=== PATIENT | male | born 1985 | race Caucasian/White ===

== ENCOUNTER 2018-05-06 21:24 | Emergency (ER) | payer SELFPAY ==
--- NOTE | 2018-05-06 21:43 | EDM.PDOC ---
ED HPI GENERAL MEDICAL PROBLEM - General Chief Complaint: General Time Seen by Provider: 05/06/18 21:37 Source of Information: Reports: Patient History Limitations: Reports: No Limitations - History of Present Illness INITIAL COMMENTS - FREE TEXT/NARRATIVE: HISTORY AND PHYSICAL: History of present illness: Patient is a 32-year-old male who presents to the emergency room today with complaints of body aches, headache and chills. He said yesterday he had gotten into a hot tub which appeared "simon in color" and is concerned he has legionnaires disease. He states that he has done research on the Internet and is concerned that he may be developing this illness. He says he has had a subjective fever and chills at home, although not recorded. The girlfriend who was also in the hot tub is feeling well and has no current complaints. Denies any nausea, vomiting, diarrhea, rashes, abdominal pain, chest pain or shortness of breath. Review of systems: As per history of present illness and below otherwise all systems reviewed and negative. Past medical history: As per history of present illness and as reviewed below otherwise noncontributory. Surgical history: As per history of present illness and as reviewed below otherwise noncontributory. Social history: No reported history of drug or alcohol abuse. Family history: As per history of present illness and as reviewed below otherwise noncontributory. Physical exam: General: Well-developed and well-nourished 32-year-old male. Alert and oriented. Nontoxic appearing and in no acute distress. HEENT: Atraumatic, normocephalic, pupils equal and reactive bilaterally, negative for conjunctival pallor or scleral icterus, mucous membranes moist, throat clear, neck supple, nontender, trachea midline. No drooling or trismus noted. No meningeal signs Lungs: Clear to auscultation, breath sounds equal bilaterally, chest nontender. Heart: S1S2, regular rate and rhythm without overt murmur Abdomen: Soft, nondistended, nontender. Negative for masses or hepatosplenomegaly. Negative for costovertebral tenderness. Pelvis: Stable nontender. Genitourinary: Deferred. Rectal: Deferred. Skin: Intact, warm, dry. No lesions or rashes noted. Extremities: Atraumatic, negative for cords or calf pain. Neurovascular unremarkable. Neuro: Awake, alert, oriented. Cranial nerves II through XII unremarkable. Cerebellum unremarkable. Motor and sensory unremarkable throughout. Exam nonfocal. Notes: During my physical assessment and evaluation of this patient I did have to ask him to get off of his cell phone so I could complete my evaluation. Patient is requesting a prescription for 2 week course of doxycycline. I did inform the patient that I was unable to write a prescription based on his online research of his illness. He refuses to do any routine lab work at this time. He is requesting to sign out prior to receiving further care. States "my dad is a doctor, I'll just have him get me this prescription". I Encouraged him to follow -up with his primary caregiver or return to the emergency room if his symptoms persist or worsen. He voices understanding Diagnostics: [employer]: Declines Impression: Encounter for medical screening Eloped Plan: Eloped Definitive disposition and diagnosis as appropriate pending reevaluation and review of above. Duration: Day(s): ED ROS GENERAL - Review of Systems Review Of Systems: ROS reveals no pertinent complaints other than HPI. ED EXAM, GENERAL - Physical Exam Exam: See Below (See dictation) Departure - Departure Time of Disposition: 21:42 Disposition: Eloped 07 Clinical Impression: Encounter for medical screening examination - Discharge Information
== END 2018-05-06 21:40 | disposition left against medical advice (07) ==
LOC: MW.ED 21:24
DX: Z13.9 Encounter for screening, unspecified (principal)
CPT/HCPCS: 99282

== ENCOUNTER 2020-07-22 10:21 | Emergency (ER) | payer OTHER ==
[2020-07-22] MEDS ORDERED: Tetracaine HCl/PF 0.5% 4 ML Bottle EYEBOTH ONE (10:24)
--- NOTE | 2020-07-22 10:43 | EDM.PDOC ---
ED HPI GENERAL MEDICAL PROBLEM - General Chief Complaint: Eye Problems Stated Complaint: IRRITATION IN EYE Time Seen by Provider: 07/22/20 10:23 Source of Information: Reports: Patient History Limitations: Reports: No Limitations - History of Present Illness INITIAL COMMENTS - FREE TEXT/NARRATIVE: HISTORY AND PHYSICAL: History of present illness: Patient is a 35-year-old male who presents to the emergency room with complaints of right eye irritation that started yesterday. He states he thought maybe some dust had gotten in his eye and has since tried to irrigate and use multiple [id number] eyedrops without any relief. He does not wear any contact lenses. He denies any visual change but states he can feel something causing irritation when he blinks. Patient denies any fever, chills, headache, change in vision, syncope or near syncope. Denies any chest pain, back pain, shortness of breath or cough. Denies any GI or symptoms. Tdap is UTD. Review of systems: As per history of present illness and below otherwise all systems reviewed and negative. Past medical history: As per history of present illness and as reviewed below otherwise noncontributory. Surgical history: As per history of present illness and as reviewed below otherwise noncontributory. Social history: See social history for further information Family history: As per history of present illness and as reviewed below otherwise noncontributory. Physical exam: General: Well developed and well nourished. Alert and orientated x 3. Nontoxic in appearance and in no acute distress. Vital signs are stable and have been reviewed by me. Nursing notes were reviewed. HEENT: Atraumatic, normocephalic, pupils equal and reactive bilaterally, negative for conjunctival pallor or scleral icterus, scleral injection of right eye, no intraocular pain with movement, mucous membranes moist, TMs normal bilaterally, throat clear, neck supple, nontender, trachea midline. No drooling or trismus noted. No meningeal signs. No hot potato voice noted. Lungs: Clear to auscultation, breath sounds equal bilaterally, chest nontender. Normal work of breathing, no accessory muscles used. Heart: S1S2, regular rate and rhythm without overt murmur Skin: Intact, warm, dry. No lesions or rashes noted. Hematologic: No petechiae or purpra. Mucosa appropriate color and normal nail bed color and refill. Extremities: Atraumatic, moves all extremities per self without difficulty or deficits, negative for cords or calf pain. Neurovascular unremarkable. Neuro: Awake, alert, oriented. Cranial nerves II through XII unremarkable. Cerebellum unremarkable. Motor and sensory unremarkable throughout. Exam nonfocal. Psychiatric: Mood and affect are appropriate. Normal thought process. Answering questions appropriately. Notes: Fluorescein eye exam shows no corneal abrasion. When using a Q-tip to wipe under the upper lid, small foreign body was gently wiped away. Patient states he immediately felt better. The same was done for the lower lid, no foreign body removed. Eye was irrigated and reassessed. Visual acuity is noted. The patient is stable for discharge, counseling was provided and we discussed in great detail signs and symptoms that would prompt them to return to the Emergency Department. Medication, follow up and supportive care measures were reviewed and discussed. Voices understanding and is agreeable to plan of care. Denies any further questions or concerns at this time. Diagnostics: [employer]: Tetracaine, Gentamycin Prescription: None Impression: Right eye FB Plan: 1. Today your exam showed a small FB in the upper lid causing irritation. 2. Please use the eye drop 1 to 2 drops 3 times daily over the next 5 to 7 days. 3. We encourage you to follow up with the supply chain coordinator in the next few days for re-evaluation and further care/management. If your symptoms should worsen, new symptoms develop or any of the signs and symptoms we discussed should arise please return to the emergency room or call 911 (if needed). Definitive disposition and diagnosis as appropriate pending reevaluation and review of above. right eye Pain Score (Numeric/FACES): 6 - Related Data Allergies Allergy/AdvReac Type Severity Reaction Status Date / Time No Known Allergies Allergy Verified 07/22/20 10:32 Home Meds: Home Meds . [No Known Home Meds] 05/06/18 [History] Past Medical History - Past Health History Medical/Surgical History: Denies Medical/Surgical History - Infectious Disease History Infectious Disease History: Reports: Chicken Pox Social & Family History - Family History Family Medical History: Noncontributory - Tobacco Use Smoking Status *Q: Current Some Day Smoker Years of Tobacco use: 10 Packs/Tins Daily: 1 - Recreational Drug Use Recreational Drug Use: No ED ROS GENERAL - Review of Systems Review Of Systems: Comprehensive ROS is negative, except as noted in HPI. ED EXAM GENERAL W FULL EYE - Physical Exam Exam: See Below (See dictation) ED EYE w/ Add Procedure - Eye Procedure Alcaine Drops Administered: No (Tetracaine drops used) Eye FB Removal: Removal w/ Cotton Swab Eye Irrigated w/ Saline (ccs): 500 Antibiotic Oinment/Drps Admin: Right Eye Course - Vital Signs Last Recorded V/S: Last Vital Signs Temp 97.7 F 07/22/20 10:33 Pulse 70 07/22/20 10:33 Resp 18 07/22/20 10:33 BP 101/66 07/22/20 10:33 Pulse Ox 99 07/22/20 10:33 - Orders/Labs/Meds Orders: Active Orders 24 hr Category Date Time Status Vision Test [RC] ASDIRECTED Care 07/22/20 10:24 Active Gentamicin [Garamycin 0.3% Ophth Soln] Med 07/22/20 14:00 Active 1 ml EYERT TID Medication Orders Gentamicin Sulfate (Garamycin 0.3% Ophth Soln) 1 ml EYERT TID DAVID Meds: Medications Generic Name Dose Route Start Last Admin Trade Name Freq PRN Reason Stop Dose Admin Gentamicin Sulfate 1 ml 07/22/20 14:00 Garamycin 0.3% Ophth Soln EYERT TID DAVID Discontinued Medications Generic Name Dose Route Start Last Admin Trade Name Freq PRN Reason Stop Dose Admin Tetracaine HCl 1 ml 07/22/20 10:24 07/22/20 10:31 Tetracaine 0.5% Steri-Unit Karin EYEBOTH 07/22/20 10:25 1 ml ASDIRECTED ONE Administration Departure - Departure Time of Disposition: 10:43 Disposition: Home, Self-Care 01 Clinical Impression: Eye foreign body Qualifiers: Encounter type: initial encounter Laterality: right Qualified Code(s): T15.91XA - Foreign body on external eye, part unspecified, right eye, initial encounter - Discharge Information Instructions: Eye Foreign Body, [id number] Forms: ED Department Discharge Additional Instructions: The following information is given to patients seen in the emergency department who are being discharged to home. This information is to outline your options for follow-up care. We provide all patients seen in our emergency department with a follow-up referral. The need for follow-up, as well as the timing and circumstances, are variable depending upon the specifics of your emergency department visit. If you don't have a primary care physician on staff, we will provide you with a referral. We always advise you to contact your personal physician following an emergency department visit to inform them of the circumstance of the visit and for follow-up with them and/or the need for any referrals to a consulting specialist. The emergency department will also refer you to a specialist when appropriate. This referral assures that you have the opportunity for follow-up care with a specialist. All of these measure are taken in an effort to provide you with optimal care, which includes your follow-up. Under all circumstances we always encourage you to contact your private physician who remains a resource for coordinating your care. When calling for follow-up care, please make the office aware that this follow-up is from your recent emergency room visit. If for any reason you are refused follow-up, please contact the [facility] Emergency Department at and asked to speak to the emergency department charge nurse. [facility] [address] [place] [address] [place] [address] Thank you for choosing the [facility] emergency department in [place] for your medical needs today. It was a pleasure caring for you. Today you were seen in the emergency department for eye irritation. 1. Today your exam showed a small FB in the upper lid causing irritation. 2. Please use the eye drop 1 to 2 drops 3 times daily over the next 5 to 7 days. 3. We encourage you to follow up with the supply chain coordinator in the next few days for re-evaluation and further care/management. If your symptoms should worsen, new symptoms develop or any of the signs and symptoms we discussed should arise please return to the emergency room or call 911 (if needed). Sepsis Event Note (ED) - Evaluation Sepsis Screening Result: No Definite Risk - Focused Exam Vital Signs: Vital Signs Temp Pulse Resp BP Pulse Ox 07/22/20 10:33 97.7 F 70 18 101/66 99 - My Orders Last 24 Hours: My Active Orders 07/22/20 10:24 Vision Test [RC] ASDIRECTED 07/22/20 14:00 Gentamicin [Garamycin 0.3% Ophth Soln] 1 ml EYERT TID - Assessment/Plan Last 24 Hours: My Active Orders 07/22/20 10:24 Vision Test [RC] ASDIRECTED 07/22/20 14:00 Gentamicin [Garamycin 0.3% Ophth Soln] 1 ml EYERT TID
[2020-07-22] MEDS ORDERED: Gentamicin 0.3% Ophth Soln 5 ML Bottle ONE (10:46)
[2020-07-22] MEDS ORDERED: Gentamicin 0.3% Ophth Soln 5 ML Bottle EYERT SCH (14:00)
== END 2020-07-22 10:52 | disposition home or self-care (01) ==
LOC: MW.ED 10:21
DX: T15.91XA Foreign body on external eye, part unspecified, right eye, initial encounter (principal); F17.210 Nicotine dependence, cigarettes, uncomplicated
CPT/HCPCS: 65205; 99283; A9270

== ENCOUNTER 2020-09-05 11:33 | Emergency (ER) | payer OTHER ==
[2020-09-05] MEDS ORDERED: Sodium Chloride 0.9% 2.5 ML Syringe FLUSH PRN (11:34)
[2020-09-05] MEDS ORDERED: Sodium Chloride 0.9% 1,000 ML IV ONE (11:34)
[2020-09-05] MEDS ORDERED: Sodium Chloride 0.9% 10 ML Syringe FLUSH PRN (11:34)
--- NOTE | 2020-09-05 11:39 | EDM.PDOC ---
ED HPI GENERAL MEDICAL PROBLEM - General Stated Complaint: EMS ARRIVAL Time Seen by Provider: 09/05/20 11:34 Source of Information: Reports: Patient, EMS History Limitations: Reports: No Limitations - History of Present Illness INITIAL COMMENTS - FREE TEXT/NARRATIVE: 35-year-old male no past medical history presents for apparent seizure. History is primarily from EMS as patient does not recall the exact events. Patient was helping to paint the house and cleaning a paint brush when he fell over backwards and began to have seizure-like activity with whole body jerking for approximately 5 minutes per bystanders. EMS was called and on arrival they noted the patient to be confused consistent with a postictal state. He was able to ambulate without assistance. He did not have any tongue biting or urinary incontinence. Family had seen him mention that patient had seizure disorder as a child, but patient denies this. He currently has a mild headache, but denies any other complaints. Denies recent illnesses, fevers, shortness of breath, chest pain, nausea vomiting. He notes that he drinks socially 1-2 drinks multiple times a week. - Related Data Allergies Allergy/AdvReac Type Severity Reaction Status Date / Time No Known Allergies Allergy Verified 09/05/20 11:37 Home Meds: Home Meds Amphetamine/Dextroamphetamine [Adderall] 5 mg PO ASDIRECTED 09/05/20 [History] LORazepam [Ativan] 1 mg PO ASDIRECTED PRN 09/05/20 [History] Past Medical History - Past Health History Medical/Surgical History: Denies Medical/Surgical History - Infectious Disease History Infectious Disease History: Reports: Chicken Pox Social & Family History - Family History Family Medical History: No Pertinent Family History ED ROS GENERAL - Review of Systems Review Of Systems: Comprehensive ROS is negative, except as noted in HPI. ED EXAM, GENERAL - Physical Exam Exam: See Below Exam Limited By: No Limitations General Appearance: Alert, WD/WN, No Apparent Distress Eye Exam: Bilateral Eye: EOMI, PERRL Throat/Mouth: Normal Voice, No Airway Compromise Head: Atraumatic, Normocephalic Neck: Normal Inspection, Non-Tender, Full Range of Motion Respiratory/Chest: No Respiratory Distress, Lungs Clear, Normal Breath Sounds, No Accessory Muscle Use GI/Abdominal: Soft, Non-Tender Extremities: Normal Inspection Neurological: Alert, Oriented, CN II-XII Intact, No Motor/Sensory Deficits Psychiatric: Normal Affect, Normal Mood Skin Exam: Warm, Dry, Intact, Normal Color #1 Interpretation EKG Date: 09/05/20 Time: 11:51 Rhythm: NSR Rate (Beats/Min): 95 [place]: Normal P-Wave: Present QRS: Normal ST-T: Normal QT: Normal OK/PQ Interval: 136 Comparison: NA - No Prior EKG Course - Vital Signs Last Recorded V/S: Last Vital Signs Temp 98.6 F 09/05/20 11:38 Pulse 97 09/05/20 11:38 Resp 17 09/05/20 11:38 BP 138/67 09/05/20 11:38 Pulse Ox 98 09/05/20 11:38 - Orders/Labs/Meds Orders: Active Orders 24 hr Category Date Time Status EKG Documentation Completion [RC] STAT Care 09/05/20 11:34 Active DRUG SCREEN, URINE [URCHEM] Stat Lab 09/05/20 12:25 Received Sodium Chloride 0.9% [Saline Flush] Med 09/05/20 11:34 Active 10 ml FLUSH ASDIRECTED PRN Sodium Chloride 0.9% [Saline Flush] Med 09/05/20 11:34 Active 2.5 ml FLUSH ASDIRECTED PRN Saline Lock Insert [OM.PC] Stat Oth 09/05/20 11:35 Ordered Medication Orders Sodium Chloride (Saline Flush) 10 ml FLUSH ASDIRECTED PRN PRN Reason: Keep Vein Open Sodium Chloride (Saline Flush) 2.5 ml FLUSH ASDIRECTED PRN PRN Reason: Keep Vein Open Labs: Laboratory Tests 09/05/20 09/05/20 09/05/20 Range/Units 10:50 10:50 12:25 WBC 7.15 (4.0-11.0) K/uL RBC 4.56 (4.50-5.90) M/uL Hgb 14.9 (13.0-17.0) g/dL Hct 43.7 (38.0-50.0) % MCV 95.8 (80.0-98.0) fL MCH 32.7 H (27.0-32.0) pg MCHC 34.1 (31.0-37.0) g/dL RDW Std Deviation 43.0 (28.0-62.0) fl RDW Coeff of [place] 12 (11.0-15.0) % Plt Count 202 (150-400) K/uL MPV 10.10 (7.40-12.00) fL Neut % (Auto) 67.2 (48.0-80.0) % Lymph % (Auto) 19.6 (16.0-40.0) % [place] % (Auto) 5.6 (0.0-15.0) % Eos % (Auto) 7.0 (0.0-7.0) % Baso % (Auto) 0.6 (0.0-1.5) % Neut # (Auto) 4.8 (1.4-5.7) K/uL Lymph # (Auto) 1.4 (0.6-2.4) K/uL [place] # (Auto) 0.4 (0.0-0.8) K/uL Eos # (Auto) 0.5 (0.0-0.7) K/uL Baso # (Auto) 0.0 (0.0-0.1) K/uL Nucleated RBC % 0.0 /100WBC Nucleated RBCs # 0 K/uL Sodium 138 (136-148) mmol/L Potassium 3.7 (3.5-5.1) mmol/L Chloride 101 (98-107) mmol/L Carbon Dioxide 28.1 (21.0-32.0) mmol/L BUN 15 (7.0-18.0) mg/dL Creatinine 1.0 (0.8-1.3) mg/dL Est Cr Clr Drug Dosing 122.38 mL/min Estimated GFR (MDRD) > 60.0 ml/min Glucose 127 H (74-106) mg/dL Calcium 8.6 (8.5-10.1) mg/dL Magnesium 2.1 (1.8-2.4) mg/dL Total Bilirubin 0.7 (0.2-1.0) mg/dL AST 21 (15-37) IU/L ALT 19 (14-63) IU/L Alkaline Phosphatase 45 L (46-116) U/L Total Protein 7.0 (6.4-8.2) g/dL Albumin 3.9 (3.4-5.0) g/dL Globulin 3.1 (2.6-4.0) g/dL Albumin/Globulin Ratio 1.3 (0.9-1.6) TSH 3rd Generation 0.99 (0.36-3.74) uIU/mL Urine Color YELLOW Urine Appearance CLEAR Urine pH 7.0 (5.0-8.0) Ur Specific [place] 1.025 (1.001-1.035) Urine Protein NEGATIVE (NEGATIVE) mg/dL Urine Glucose (UA) NEGATIVE (NEGATIVE) mg/dL Urine Ketones NEGATIVE (NEGATIVE) mg/dL Urine Occult Blood NEGATIVE (NEGATIVE) Urine Nitrite NEGATIVE (NEGATIVE) Urine Bilirubin NEGATIVE (NEGATIVE) Urine Urobilinogen 0.2 (<2.0) EU/dL Ur Leukocyte Esterase NEGATIVE (NEGATIVE) Ethyl Alcohol < 3.0 mg/dL Meds: Medications Generic Name Dose Route Start Last Admin Trade Name Freq PRN Reason Stop Dose Admin Sodium Chloride 10 ml 09/05/20 11:34 Saline Flush FLUSH ASDIRECTED PRN Keep Vein Open Sodium Chloride 2.5 ml 09/05/20 11:34 Saline Flush FLUSH ASDIRECTED PRN Keep Vein Open Discontinued Medications Generic Name Dose Route Start Last Admin Trade Name Freq PRN Reason Stop Dose Admin Sodium Chloride 1,000 mls @ 999 mls/hr 09/05/20 11:34 Normal Saline IV 09/05/20 12:34 .Bolus ONE - Re-Assessments/Exams Free Text/Narrative Re-Assessment/Exam: 09/05/20 11:40 Will get labs, EKG, head CT in setting of first-time seizure. We will follow up results and disposition accordingly. 09/05/20 12:40 Labs and imaging are unremarkable; will d/c patient with neurology f/u for new onset seizure workup. Departure - Departure Time of Disposition: 12:40 Disposition: Home, Self-Care 01 Condition: Good Clinical Impression: Seizure - Discharge Information Instructions: Seizure, Adult, [id number] Additional Instructions: Your work-up including labs and head CT were all unremarkable. You should follow-up with a neurologist. If you have another seizure, he should come back to the hospital. [facility] Professional Building [address] [place] [address], [address] [place], [place] [id number] The following information is given to patients seen in the emergency department who are being discharged to home. This information is to outline your options for follow-up care. We provide all patients seen in our emergency department with a follow-up referral. The need for follow-up, as well as the timing and circumstances, are variable depending upon the specifics of your emergency department visit. If you don't have a primary care physician on staff, we will provide you with a referral. We always advise you to contact your personal physician following an emergency department visit to inform them of the circumstance of the visit and for follow-up with them and/or the need for any referrals to a consulting specialist. The emergency department will also refer you to a specialist when appropriate. This referral assures that you have the opportunity for follow-up care with a specialist. All of these measure are taken in an effort to provide you with optimal care, which includes your follow-up. Under all circumstances we always encourage you to contact your private physician who remains a resource for coordinating your care. When calling for follow-up care, please make the office aware that this follow-up is from your recent emergency room visit. If for any reason you are refused follow-up, please contact the [facility] Emergency Department at and asked to speak to the emergency department charge nurse. Please follow up with your primary care physician. If you do not have a primary care physician, see below: [facility] [address] [place] [id number] [facility] [address] [place] [id number] Sepsis Event Note (ED) - Focused Exam Vital Signs: Vital Signs Temp Pulse Resp BP Pulse Ox 09/05/20 11:38 98.6 F 97 17 138/67 98 - My Orders Last 24 Hours: My Active Orders 09/05/20 11:34 EKG Documentation Completion [RC] STAT Sodium Chloride 0.9% [Saline Flush] 10 ml FLUSH ASDIRECTED PRN Sodium Chloride 0.9% [Saline Flush] 2.5 ml FLUSH ASDIRECTED PRN 09/05/20 11:35 Saline Lock Insert [OM.PC] Stat 09/05/20 12:25 DRUG SCREEN, URINE [URCHEM] Stat - Assessment/Plan Last 24 Hours: My Active Orders 09/05/20 11:34 EKG Documentation Completion [RC] STAT Sodium Chloride 0.9% [Saline Flush] 10 ml FLUSH ASDIRECTED PRN Sodium Chloride 0.9% [Saline Flush] 2.5 ml FLUSH ASDIRECTED PRN 09/05/20 11:35 Saline Lock Insert [OM.PC] Stat 09/05/20 12:25 DRUG SCREEN, URINE [URCHEM] Stat
--- NOTE | 2020-09-05 12:14 | CT ---
Indication: First time seizure Technique: Volumetric multidetector CT images of the head were obtained without the administration of low osmolar intravenous contrast. Comparison: None available Findings: There is no intra-axial or extra-axial fluid collection. There is no mass effect or midline shift. The ventricles and sulci are normal in size and position for age. The brain parenchyma is grossly preserved in attenuation and everett-white differentiation. The orbits and their contents are grossly within normal limits. The bony calvarium is grossly intact. There is minimal mucosal thickening seen within the paranasal sinuses. The mastoid air cells are well aerated. Impression: No acute intracranial abnormality. Please note that all CT scans at this facility use dose modulation, iterative reconstruction, and/or weight-based dosing when appropriate to reduce radiation dose to as low as reasonably achievable. Dictated by Luc Mayo MD @ Sep 05 2020 12:07PM Signed by Dr. Luc Mayo @ Sep 05 2020 12:13PM
[2020-09-05 12:34] LABS: BLOOD UREA NITROGEN,BUN 15 mg/dL (7.0-18.0); CARBON DIOXIDE,CO2 28.1 mmol/L (21.0-32.0); CHLORIDE,CL 101 mmol/L (98-107); GLUCOSE RANDOM 127 mg/dL (74-106); POTASSIUM,K 3.7 mmol/L (3.5-5.1); SODIUM,NA 138 mmol/L (136-148)
== END 2020-09-05 13:20 | disposition home or self-care (01) ==
LOC: MW.ED 11:33
DX: R56.9 Unspecified convulsions (principal)
CPT/HCPCS: 36415; 70450; 80053; 80305; 80307; 81003; 83735; 84443; 85025; 93005; 99285; J7030; 93010; 99284